=== PATIENT | male | born 1955 | race Caucasian/White ===

== ENCOUNTER 2017-04-11 18:47 | Emergency (ER) | payer OTHER ==
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
[2017-04-11 19:48] VITALS: TEMP 98; BMI 30.9
[2017-04-11] MEDS ORDERED: LOSARTAN 50MG/HCTZ 12.5MG 1 TAB (FP) PO ONE (19:55)
[2017-04-11] MEDS ORDERED: OXYCODONE/APAP 5/325MG COMBO TABLET PO ONE (20:01)
[2017-04-11] MEDS ORDERED: ACETAMINOPHEN 325 MG TABLET (FP) PO ONE (20:01)
[2017-04-11] MEDS ORDERED: SODIUM CHLORIDE 0.9% 500 ML INFUS.BAG IV ONE (20:01)
[2017-04-11] MEDS ORDERED: LOSARTAN POTASSIUM 25 MG TABLET ONE (20:20)
[2017-04-11] MEDS ORDERED: OXYCODONE/APAP 5/325MG COMBO TABLET ONE (20:20)
[2017-04-11] MEDS ORDERED: ACETAMINOPHEN 325 MG TABLET (FP) ONE (20:20)
[2017-04-11 20:27] LABS: BASOPHIL 0.6 % (0-2.0); MCH 27.6 pg (25.7-33.7); MCHC 33.9 g/dl (32.0-35.9); MEAN CELL VOLUME 81.5 fl (80-96); MEAN PLT VOLUME 6.8 fl (7.5-11.1); NEUTROPHILS 71.5 % (42.8-82.8); PLATELET COUNT 269 K/MM3 (134-434); RDW 14.8 % (11.9-15.9)
[2017-04-11 20:48] LABS: ALBUMIN 3.7 g/dl (3.4-5.0); ANION GAP 8 (8-16); BILIRUBIN,TOTAL 0.3 mg/dL (0.2-1.0); CALCIUM 8.8 mg/dL (8.5-10.1); CO2 26 mmol/L (21-32); GLUCOSE,RANDOM 162 mg/dL (74-106); SGOT/AST 21 U/L (15-37); SGPT/ALT 38 U/L (12-78); TOT PROT 7.9 g/dl (6.4-8.2)
[2017-04-11 20:49] LABS: ALK PHOS 98 U/L (45-117)
[2017-04-11] MEDS ORDERED: MAGNESIUM SULF 50% (8.12 MEQ/2 ML-1 GM VIAL) IVPB ONE (22:42)
[2017-04-11] MEDS ORDERED: POTASSIUM CHLORIDE TABS 20 MEQ TABLET.ER (FP) PO ONE ×2 (22:42→22:52)
[2017-04-11] MEDS ORDERED: MAGNESIUM SULF 50% (8.12 MEQ/2 ML-1 GM VIAL) ONE (22:52)
[2017-04-11 23:23] VITALS: BP 138/84; PULSE 77
[2017-04-11] MEDS ORDERED: KETOROLAC TROMETHAMINE 30 MG/1 ML VIAL IVPUSH ONE (23:30)
[2017-04-11] MEDS ORDERED: KETOROLAC TROMETHAMINE 30 MG/1 ML VIAL ONE (23:37)
== END 2017-04-12 01:14 | disposition home or self-care (01) ==
LOC: JER 18:47
PROC: 3E0333Z Introduction of Anti-inflammatory into Peripheral Vein, Percutaneous Approach (ICD-10-PCS; principal; 2017-04-11)
PROC: 3E033GC Introduction of Other Therapeutic Substance into Peripheral Vein, Percutaneous Approach (ICD-10-PCS; 2017-04-11)
DX: M50.223 Other cervical disc displacement at C6-C7 level (principal); V43.52XA Car driver injured in collision with other type car in traffic accident, initial encounter; Y92.414 Local residential or business street as the place of occurrence of the external cause; Y93.89 Activity, other specified; I10 Essential (primary) hypertension; E87.6 Hypokalemia
CPT/HCPCS: 36415; 70450-TC; 72125-TC; 80053; 85025; 99281-25